=== PATIENT | male | born 1995 | race Asian ===

== ENCOUNTER 2022-03-16 20:21 | Emergency (ER) | payer OTHER ==
[2022-03-16 21:04] VITALS: BP 146/85; PULSE 81; TEMP 98.2; BMI 301.7
== END 2022-03-16 21:07 | disposition home or self-care (01) ==
LOC: JER 20:21 → JERFT 20:21
DX: M25.572 Pain in left ankle and joints of left foot (principal)
CPT/HCPCS: 73610-TC-LT-FY; 73630-TC-LT; 99283-25